=== PATIENT | male | born 1965 | race Asian ===

== ENCOUNTER 2019-05-08 11:42 | Emergency (ER) | payer OTHER ==
[~2019-05-08] VITALS: Ht 175.3 cm; Wt 74.8 kg
[2019-05-08 11:49] VITALS: BP_SYST 109
--- NOTE | 2019-05-08 11:55 | NUR ---
Patient to ER bed 8 to gown for evaluation. Side rails up. Report given to Danielle QUIÑONEZ.
--- NOTE | 2019-05-08 11:57 | NUR ---
ER at bedside examining patient.
[2019-05-08] MEDS ORDERED: COLCHICINE 0.6 MG TABLET PO ONE (12:00)
--- NOTE | 2019-05-08 12:00 | NUR ---
pt reports right foot pain 5/10, foot appears swollen and erythema. pt took gout med at home with no releif.
--- NOTE | 2019-05-08 12:13 | NUR ---
medicated the pt w/ [place]. Will reassess.
[2019-05-08] MEDS ORDERED: KETOROLAC TROMETHAMINE 60 MG/2 ML VIAL IM ONE (13:00)
--- NOTE | 2019-05-08 13:30 | NUR ---
medicated the pt w/ Toradol. Will reassess
[2019-05-08 13:41] VITALS: BP_SYST 109
--- NOTE | 2019-05-08 13:42 | NUR ---
Patient given written and verbal discharge instructions and verbalizes understanding. ER MD discussed with patient the results and treatment provided. Patient in stable condition. ID arm band removed. Rx of Indomethacin and Coclchine given. Patient educated on pain management and to follow up with PMD. Pain Scale 3/10.Opportunity for questions provided and answered. Medication side effect fact sheet provided.
== END 2019-05-08 13:42 | disposition home or self-care (01) ==
LOC: SED 11:42
DX: M10.9 Gout, unspecified (principal)
CPT/HCPCS: 36415; 84550; 96372; 99283; J1885